=== PATIENT | male | born 1990 | race Caucasian/White ===

== ENCOUNTER 2016-12-18 21:13 | Emergency (ER) | payer OTHER ==
[~2016-12-18] VITALS: Ht 182.9 cm; Wt 86.4 kg
[2016-12-18 21:15] VITALS: BP 137/87; PULSE 94; TEMP 97.8
== END 2016-12-18 22:06 | disposition home or self-care (01) ==
LOC: COL.ER 21:13
DX: J98.01 Acute bronchospasm (principal)
CPT/HCPCS: J8540

== ENCOUNTER 2018-01-07 16:27 | Emergency (ER) | payer OTHER ==
[~2018-01-07] VITALS: Ht 182.9 cm; Wt 88.6 kg
[2018-01-07 16:33] VITALS: TEMP 97.4
[2018-01-07] MEDS ORDERED: PROAIR HFA0.09 MG/AC IH (17:00)
[2018-01-07 17:15] LABS: BASO # 0.1 (0.0-0.2); BASO % 0.9 % (0.0-2.0); EOS # 0.6 (0.0-0.7); EOS % 8.7 % (0-4.0); GRAN # 3.2 (1.4-6.5); GRAN % 48.7 % (42.2-75.2); HEMATOCRIT 43.6 % (42.0-52.0); HEMOGLOBIN 15.2 g/dl (13.5-18.0); LYMPH # 2.3 (1.2-3.4); LYMPH % 35.5 % (20.0-51.0); MEAN CELL VOLUME 91 fl (80.0-100.0); MEAN CORPUSCULAR HEMOGLOBIN 32 pg (27.0-31.0); MEAN CORPUSCULAR HGB CONC 35 g/dl (33.0-37.0); MEAN PLATELET VOLUME 10.5 fl (7.4-10.4); MONO # 0.4 (0.1-0.6); PLATELET COUNT 198 K/mm3 (130-400); RED BLOOD COUNT 4.79 M/mm3 (4.20-5.60); REDCELL DISTRIBUTION WIDTH-CV 11.8 % (11.5-14.5)
[2018-01-07 17:40] LABS: ERYTHROCYTE SEDIMENTATION RATE 1 mm/hr (0-15)
[2018-01-07 18:09] VITALS: BP 125/76; PULSE 58
== END 2018-01-07 18:09 | disposition home or self-care (01) ==
LOC: COL.ER 16:27
PROVIDERS: Family Medicine
DX: R07.89 Other chest pain (principal); J45.909 Unspecified asthma, uncomplicated